=== PATIENT | male | born 1990 | race Caucasian/White ===

== ENCOUNTER 2018-08-08 16:44 | Emergency (ER) | payer MEDICAID, SELFPAY ==
[2018-08-08 16:47] VITALS: BP 136/88; PULSE 79; RESP 20; TEMP 36; O2SAT 95
--- NOTE | 2018-08-08 17:35 | W.ED.GENAD ---
Discharge Plan Disposition Patient Disposition: HOME Condition: Stable Discharge Details Chief Complaint: Orthopedic Clinical Impression: Right shoulder strain Primary Care Provider: Harris Christianson ED Provider: Leon Mendenhall Home Meds and New Rx's Prescriptions: New methocarbamol 500 mg tablet 500 - 1,000 mg PO Q6H PRN (Reason: Back pain or spasm) Qty: 14 RF: 0 Continued sertraline [Zoloft] 100 mg Tablet 100 mg PO DAILY RF: 0 omeprazole 20 mg Capsule,Delayed Release(Dr/Ec) 20 mg PO DAILY RF: 0 Discharge Instructions Additional Instructions: Use sling as needed for comfort 3-5 days time. Perform daily range of motion exercises as we discussed. Apply ice to reduce inflammation and pain. Remove the Lidoderm patch in 12 hours time. May continue ibuprofen 600-800 mg every 8 hours, with food. Follow-up with physical therapy this week. Return for any acute concern. Stand Alone Forms: Physical Therapy Referral Medical Decision Making 28-year-old male with a history of rotator cuff the and this presents with right shoulder pain after helping a friend move last weekend. He is tender overlying supraspinatus and I am concerned for rotator cuff inflammation. Do not feel that plain radiographs are indicated. We will place the patient in a sling for comfort, refer to physical therapy, will apply Lidoderm patch for tonight, the patient may continue to use ibuprofen and ice, and I will offer him a small number of methocarbamol for muscular discomfort. He is stable for discharge understands follow-up and return HPI General Mode of arrival: ambulatory. Date/Time Provider Initiated Documentation: 08/08/18 17:15. Limitations to Documentation: no limitations. Information obtained by: patient. History of Present Illness 28 year old M presents to the emergency department with the chief complaint of Right shoulder pain after helping a friend move, described as moderate, Quality is described as aching and dull, and is localized to the right and upper extremity. Patient reports no radiation. Patient started experiencing this day(s) and it has been constant. Rest improves symptom(s), Movement worsens symptoms . Patient notes no other symptoms.. Patient did receive the following treatments prior to arrival, none Related Data Home Medications Medication Instructions Recorded Confirmed methocarbamol 500 - 1,000 mg PO Q6H PRN #14 tab 08/08/18 omeprazole 20 mg PO DAILY 08/08/18 08/08/18 sertraline [Zoloft] 100 mg PO DAILY 08/08/18 08/08/18 Previous Rx's Medication Instructions Recorded methocarbamol 500 - 1,000 mg PO Q6H PRN #14 tab 08/08/18 Allergies Allergy/AdvReac Type Severity Reaction Status Date / Time No Known Allergies Allergy Unverified 08/08/18 17:06 General Stated Complaint: Orthopedic ARNOLDO: 3 Review of Systems Review of Systems No numbness or tingling. No traumatic injury. 6 systems reviewed and otherwise negative [facility] Family History Mother Personal history of malignant neoplasm Mental disorder Father Hyperlipidemia Grandfather Diabetes Hyperlipidemia Mental disorder Grandfather Personal history of malignant neoplasm Grandmother No problems noted. Grandmother No problems noted. Social History Smoking/Tobacco Use Status: Current-Occasional Drug use: Never Exam Narrative Exam Narrative: GEN: awake, alert, oriented 3. Pleasant, well groomed, interactive. HEAD: Normocephalic, atraumatic ENT: Mucous membranes moist, oropharynx unremarkable, External ear exam unremarkable EYES: PERRL, EOMI NECK: Full ROM, no SHIRA, no menigismus EXT: Right supraspinatus tenderness. Pain with resisted abduction right side. Good pain with internal with internal and external rotation. Motor is 5 out of 5. 2+ radial pulse Neuro: Grossly normal neurologic exam, conversant, interactive. Psych: Speech fluent, thoughts congruent, affect normal Course Vital Signs Temperature 36 C L 08/08/18 16:47 Pulse 79 08/08/18 16:47 Respiratory Rate 20 08/08/18 16:47 Blood Pressure 136/88 08/08/18 16:47 Pulse Oximetry 95 08/08/18 16:47 Temperature 36 C L 08/08/18 16:47 Pulse 79 08/08/18 16:47 Respiratory Rate 20 08/08/18 16:47 Respiratory Effort Non-Labored 08/08/18 16:47 Blood Pressure 136/88 08/08/18 16:47 Pulse Oximetry 95 08/08/18 16:47 Oxygen Delivery Method Room Air 08/08/18 16:47 Oxygen Flow Rate 0 08/08/18 16:47 Pain Level 7 08/08/18 16:47
--- NOTE | 2018-08-08 17:39 | ED.GENADUL_ITS ---
Discharge Plan Disposition Patient Disposition: HOME Condition: Stable Discharge Details Chief Complaint: Orthopedic Clinical Impression: Right shoulder strain Primary Care Provider: Harris Christianson ED Provider: Leon Mendenhall Home Meds and New Rx's Prescriptions: New methocarbamol 500 mg tablet 500 - 1,000 mg PO Q6H PRN (Reason: Back pain or spasm) Qty: 14 RF: 0 Continued sertraline [Zoloft] 100 mg Tablet 100 mg PO DAILY RF: 0 omeprazole 20 mg Capsule,Delayed Release(Dr/Ec) 20 mg PO DAILY RF: 0 Discharge Instructions Additional Instructions: Use sling as needed for comfort 3-5 days time. Perform daily range of motion exercises as we discussed. Apply ice to reduce inflammation and pain. Remove the Lidoderm patch in 12 hours time. May continue ibuprofen 600-800 mg every 8 hours, with food. Follow-up with physical therapy this week. Return for any acute concern. Stand Alone Forms: Physical Therapy Referral Medical Decision Making 28-year-old male with a history of rotator cuff the and this presents with right shoulder pain after helping a friend move last weekend. He is tender overlying supraspinatus and I am concerned for rotator cuff inflammation. Do not feel that plain radiographs are indicated. We will place the patient in a sling for comfort, refer to physical therapy, will apply Lidoderm patch for tonight, the patient may continue to use ibuprofen and ice, and I will offer him a small number of methocarbamol for muscular discomfort. He is stable for discharge understands follow-up and return HPI General Mode of arrival: ambulatory . Date/Time Provider Initiated Documentation: 08/08/18 17:15 . Limitations to Documentation: no limitations . Information obtained by: patient . History of Present Illness 28 year old M presents to the emergency department with the chief complaint of Right shoulder pain after helping a friend move, described as moderate, Quality is described as aching and dull, and is localized to the right and upper extremity. Patient reports no radiation. Patient started experiencing this day(s) and it has been constant. Rest improves symptom(s), Movement worsens symptoms . Patient notes no other symptoms.. Patient did receive the following treatments prior to arrival, none Related Data Home Medications Medication Instructions Recorded Confirmed methocarbamol 500 - 1,000 mg PO Q6H PRN #14 tab 08/08/18 omeprazole 20 mg PO DAILY 08/08/18 08/08/18 sertraline [Zoloft] 100 mg PO DAILY 08/08/18 08/08/18 Previous Rx's Medication Instructions Recorded methocarbamol 500 - 1,000 mg PO Q6H PRN #14 tab 08/08/18 Allergies Allergy/AdvReac Type Severity Reaction Status Date / Time No Known Allergies Allergy Unverified 08/08/18 17:06 General Stated Complaint: Orthopedic ARNOLDO: 3 Review of Systems Review of Systems No numbness or tingling. No traumatic injury. 6 systems reviewed and otherwise negative [facility] Family History Mother Personal history of malignant neoplasm Mental disorder Father Hyperlipidemia Grandfather Diabetes Hyperlipidemia Mental disorder Grandfather Personal history of malignant neoplasm Grandmother No problems noted. Grandmother No problems noted. Social History Smoking/Tobacco Use Status: Current-Occasional Drug use: Never Exam Narrative Exam Narrative: GEN: awake, alert, oriented 3. Pleasant, well groomed, interactive. HEAD: Normocephalic, atraumatic ENT: Mucous membranes moist, oropharynx unremarkable, External ear exam unremarkable EYES: PERRL, EOMI NECK: Full ROM, no SHIRA, no menigismus EXT: Right supraspinatus tenderness. Pain with resisted abduction right side. Good pain with internal with internal and external rotation. Motor is 5 out of 5. 2+ radial pulse Neuro: Grossly normal neurologic exam, conversant, interactive. Psych: Speech fluent, thoughts congruent, affect normal Course Vital Signs Temperature 36 C L 08/08/18 16:47 Pulse 79 08/08/18 16:47 Respiratory Rate 20 08/08/18 16:47 Blood Pressure 136/88 08/08/18 16:47 Pulse Oximetry 95 08/08/18 16:47 Temperature 36 C L 08/08/18 16:47 Pulse 79 08/08/18 16:47 Respiratory Rate 20 08/08/18 16:47 Respiratory Effort Non-Labored 08/08/18 16:47 Blood Pressure 136/88 08/08/18 16:47 Pulse Oximetry 95 08/08/18 16:47 Oxygen Delivery Method Room Air 08/08/18 16:47 Oxygen Flow Rate 0 08/08/18 16:47 Pain Level 7 08/08/18 16:47
[2018-08-08 17:52] VITALS: BP 136/88; PULSE 79; RESP 20; TEMP 36; O2SAT 95
[2018-08-08] MEDS: Lidocaine 5% Patch 1 PATCH TP (17:54)
== END 2018-08-08 17:47 | disposition home or self-care (01) ==
LOC: ER 17:54
PROVIDERS: Emergency Provider Emergency Medicine; PCP Family Medicine
DX: S46.911A Strain of unspecified muscle, fascia and tendon at shoulder and upper arm level, right arm, initial encounter (principal); X50.3XXA Overexertion from repetitive movements, initial encounter
CPT/HCPCS: 99283; 99282; L3650

== ENCOUNTER 2018-09-28 10:29 | Outpatient (REF) | payer MEDICAID, SELFPAY ==
[2018-09-28 13:45] LABS: Albumin 4.2 g/dL (3.4-5.0); Alkaline Phosphatase 54 U/L (46-116); Anion Gap 13.8 mmol/L (3-11); BUN 14 mg/dL (7-18); Bilirubin, Total 0.6 mg/dL (0.2-1.0); CO2 23.2 mmol/L (21.0-32.0); CREATININE 1.07 mg/dL (0.70-1.30); Calcium 8.5 mg/dL (8.5-10.1); Chloride 101 mmol/L (98-107); Cholesterol 287 mg/dL (50-200); Glucose 151 mg/dL (70-100); HDL Cholesterol 17 mg/dL (40-60); LDL CHOLESTEROL 81 mg/dL (<100); Potassium 4.2 mmol/L (3.5-5.1); Sodium 138 mmol/L (136-145); Total Protein 7.5 g/dL (6.4-8.2)
[2018-09-28 14:08] LABS: AST 95 U/L (15-37)
[2018-09-28 14:09] LABS: ALT 122 U/L (12-78); Triglyceride 1756 mg/dL (30-150)
[2018-09-28 15:46] LABS: Uric Acid 9.5 mg/dL (3.5-7.2)
== END 2018-09-28 10:49 ==
LOC: LBN 10:29
PROVIDERS: PCP Family Medicine; Visit Provider Family Medicine
DX: Z13.220 Encounter for screening for lipoid disorders (principal); M10.9 Gout, unspecified
CPT/HCPCS: 80053; 80061; 83721; 84550

== ENCOUNTER 2018-10-09 11:04 | Outpatient (REF) | payer MEDICAID, SELFPAY ==
[2018-10-09 13:08] LABS: Iron 52 ug/dL (50-175); Transferrin Sat 16 % (20-55)
[2018-10-09 13:23] LABS: Ferritin 259 ng/mL (8-388)
[2018-10-09 13:55] LABS: Total Iron Binding Capacity 318 ug/dL (250-450)
[2018-10-10 11:31] LABS: HBs Antibody, Qual Positive; HBs Antibody, Quant 23.8 mIU/mL; Hepatitis B Core Antibody Negative (NEGAT); Hepatitis B surface Ag Negative (NEGAT); Hepatitis C Ab w Rflx HCV PCR Negative (NEGAT)
[2018-10-10 14:46] LABS: ANA Interpretation Negative (NEGAT)
[2018-10-11 14:40] LABS: Smooth Muscle Ab Screen Negative (Negative)
== END 2018-10-09 11:24 ==
LOC: LBO 11:04
PROVIDERS: PCP Family Medicine; Visit Provider Family Medicine
DX: R74.8 Abnormal levels of other serum enzymes (principal); Z01.84 Encounter for antibody response examination; Z11.59 Encounter for screening for other viral diseases
CPT/HCPCS: 86704; 86706; 86803; 87340; 82728; 83540; 83550; 86038; 86255

== ENCOUNTER 2018-10-15 01:04 | Outpatient (CLI) | payer MEDICAID, SELFPAY ==
--- NOTE | 2018-10-15 07:02 | DI.US_ITS ---
SYMPTOM/DIAGNOSIS: ELEVATED LFT'S, SUSPECT NAFLD R74.8 ABDOMEN ULTRASOUND: There are no prior comparison exams The liver is enlarged and shows increased echogenicity and decreased through transmission, consistent with fatty infiltration. The posterior portions of the liver are not well visualized. No focal liver lesions are visible. There is no evidence of biliary dilatation. The gallbladder is unremarkable. The spleen appears enlarged with a length of 16 cm. The kidneys are unremarkable. There is no ascites. The aorta is normal in diameter. IMPRESSION: Enlarged fatty liver. Splenomegaly is also seen.
== END 2018-10-15 01:24 ==
PROVIDERS: PCP Family Medicine; Visit Provider Family Medicine
DX: R74.8 Abnormal levels of other serum enzymes (principal); R16.2 Hepatomegaly with splenomegaly, not elsewhere classified; K76.0 Fatty (change of) liver, not elsewhere classified
CPT/HCPCS: 76700

== ENCOUNTER 2019-03-04 01:29 | Outpatient (CLI) | payer MEDICAID, SELFPAY ==
--- NOTE | 2019-03-04 14:35 | DI.MRI_ITS ---
EXAM: MR BRAIN WO CLINICAL HISTORY: gait imbalance/abnormality,R26.9-unspecified abnormalities of gait/mobility. TECHNIQUE: Multiplanar multisequence MRI was performed. COMPARISON: No exams were available for comparison FINDINGS: Intracranial hemorrhage, mass or infarct is seen. The ventricles are normal in size. The vascular f low voids appear intact. There are no abnormal high signal lesions in the white matter. No of areas of restricted diffusion are seen. The orbits, sinuses and mastoid air cells are unremarkable. The pituitary appears normal in size. IMPRESSION: Negative MRI of the brain
== END 2019-03-04 01:49 ==
PROVIDERS: PCP Family Medicine; Visit Provider Psychiatry & Neurology Neurology
DX: R26.9 Unspecified abnormalities of gait and mobility (principal)
CPT/HCPCS: 70551

== ENCOUNTER 2019-09-28 23:21 | Emergency (ER) | payer SELFPAY ==
[2019-09-28 23:24] VITALS: BP 160/83; PULSE 89; RESP 16; TEMP 36.6; O2SAT 96
--- NOTE | 2019-09-28 23:41 | W.ED.GENAD ---
Discharge Plan Disposition Patient Disposition: HOME Condition: Stable Discharge Details Chief Complaint: Cellulitis Clinical Impression: Insect bite, venomous, Cellulitis and abscess of lower extremity Primary Care Provider: Willie Ely ED Provider: Ariadna Larose Home Meds and New Rx's Prescriptions: New mupirocin 2 % ointment 1 applic TP BID 7 Days Qty: 15 RF: 0 cephalexin 500 mg capsule 500 mg PO BID 5 Days Qty: 10 RF: 0 Continued omeprazole 20 mg capsule,delayed release(DR/EC) 20 mg PO DAILY Qty: 90 RF: 3 sertraline [Zoloft] 100 mg tablet 100 mg PO DAILY Qty: 90 RF: 3 gemfibrozil [Lopid] 600 mg tablet 600 mg PO BID Qty: 180 RF: 3 (DME) blood sugar diagnostic, disc strip See Dose Instructions .ROUTE .MEDSUPPLY Qty: 100 RF: 3 (DME) lancets misc See Dose Instructions .ROUTE .MEDSUPPLY Qty: 100 RF: 3 (DME) blood-glucose meter kit See Dose Instructions .ROUTE .MEDSUPPLY Qty: 1 RF: 0 Discharge Instructions Instructions: Cellulitis (ED), Insect Bite or Sting (ED) Additional Instructions: Follow up with primary care provider in 3-5 days. Return to ED sooner if any worsening or concerns. Increase oral fluids. Please take Tylenol or Ibuprofen with food every 4-6 hours as needed for pain and swelling. Take medications as directed. Keep covered clean and dry. Referrals: Willie Ely DO [Primary Care Provider] - Medical Decision Making 29-year-old male presents with right anterior insect bite. At this time it is mild to moderate. Patient states he woke up today with pruritic red area he did not see a bug that bit him. Redness as well. Which has spread somewhat, there is some yellowish drainage noted. Denies any fever chills, body aches or any other symptoms. He denies possible contact with poison oak or rebecca. At this time I will place bacitracin and a dressing. I will put him on 5 days of cephalexin for possible cellulitis. Although this is more likely a venomous reaction from an insect bite. Instructed to follow-up with PCP in 3 to 5 days or return if any worsening swelling, redness or any concerns. 2352: Applied bacitracin ointment dressing and pressure bandage to anterior villasenor. Discussed home care, verbalized understanding. HPI General Mode of arrival: ambulatory. Date/Time Provider Initiated Documentation: 09/28/19 23:31. Limitations to Documentation: no limitations. Information obtained by: patient. HPI Narrative: 29-year-old male presents with right anterior insect bite. At this time it is mild to moderate. Patient states he woke up today with pruritic red area he did not see a bug that bit him. Redness as well. Which has spread somewhat, there is some yellowish drainage noted. Denies any fever chills, body aches or any other symptoms. He denies possible contact with poison oak or rebecca. Related Data Home Medications Medication Instructions Recorded Confirmed omeprazole 20 mg capsule,delayed 20 mg PO DAILY #90 cap 09/28/18 09/28/19 release sertraline 100 mg tablet 100 mg PO DAILY #90 tab 09/28/18 09/28/19 blood sugar diagnostic, disc #100 each 10/09/18 02/26/19 blood-glucose meter #1 each 10/09/18 02/26/19 gemfibrozil 600 mg tablet 600 mg PO BID #180 tab 10/09/18 09/28/19 lancets #100 each 10/09/18 02/26/19 cephalexin 500 mg PO BID 5 Days #10 cap 09/28/19 mupirocin 1 applic TP BID 7 Days #15 gm 09/28/19 Previous Rx's Medication Instructions Recorded omeprazole 20 mg capsule,delayed 20 mg PO DAILY #90 cap 09/28/18 release sertraline 100 mg tablet 100 mg PO DAILY #90 tab 09/28/18 blood sugar diagnostic, disc #100 each 10/09/18 blood-glucose meter #1 each 10/09/18 gemfibrozil 600 mg tablet 600 mg PO BID #180 tab 10/09/18 lancets #100 each 10/09/18 cephalexin 500 mg PO BID 5 Days #10 cap 09/28/19 mupirocin 1 applic TP BID 7 Days #15 gm 09/28/19 Allergies Allergy/AdvReac Type Severity Reaction Status Date / Time No Known Allergies Allergy Verified 09/28/19 23:27 General Stated Complaint: Cellulitis ARNOLDO: 4 Review of Systems Narrative: Constitutional: Negative for weight loss, alert and oriented, well groomed, normal body habitus, appears comfortable. HEENT: Denies trauma, headaches, blurry vision, nasal discharge, sore throat, trouble swallowing. Chest: Denies chest pain, palpitations, irregular rhythm, hypertension. Respiratory: Denies Shortness of breath, cough, hemoptysis. GI: Denies abdominal pain, nausea, vomiting, diarrhea, constipation. : Denies dysuria, hematuria, flank pain, rectal bleeding. Musculoskeletal: He does have a possible insect bite to his right anterior villasenor. Neuro: Denies dizziness, blurry vision, weakness, syncope, headache or facial numbness. Hematologic: Denies easy bruising, intolerance to heat or cold, hair loss. [facility] Medical History Anxiety (Chronic) Back pain (Acute) Elevated liver enzymes (Acute) Gout (Chronic) Headache (Acute) High blood triglycerides (Chronic) Insomnia (Acute) Obesity (Acute 07/28/04) Reactive airway disease (Acute 08/02/03) Reflux esophagitis (Acute 08/03/11) Surgical History Hx of removal of cyst (Acute) Tailbone-Removed in HS Hx of wisdom tooth extraction (Acute) Family History Mother Personal history of malignant neoplasm Breast Mental disorder Depression/Anxiety Diabetes Father Hyperlipidemia Anxiety Arthritis Grandfather Diabetes Hyperlipidemia Mental disorder Depression Grandfather Personal history of malignant neoplasm Liver Social History Smoking/Tobacco Use Status: Current-Occasional Tobacco Type: cigarettes Smokeless tobacco user: other Alcohol Intake: current Alcohol Intake frequency: a few times a month Alcohol type: beer Drug use: Daily Substance use type: marijuana Household members: significant other Housing: apartment Number of Children: 0 Communication Needs: None Education Level: college current occupation: unemployed Current gender identity: male What is your relationship status?: living with partner Panel score (0-1 are the most socially isolated patients): 1 What type of physical activity do you participate in: regular exercise Frequency: 3-4 times per week Seatbelt use: always 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 Appears stated age. Normal body habitus. Head: Normocephalic, no trauma. Eyes: Pupils PERRLA, Red reflex noted, EOM's intact. Eyelids symmetrical without lesions, discharge, or swelling. ENT: Bilateral TM's WNL, External ear normal to inspection, no mastoid TTP, swelling, or erythema, Nasal turbinates WNL, no nasal discharge. Normal dentition, Posterior pharynx WNL, no exudate. Chest: RRR, Normal S1, S2, distal pulses intact. Resp: Lungs clear to auscultation bilaterally, no wheezes, rales, or rhonchi. Musculoskeletal: Normal gait, 5/5 strength to all four extremities. Skin: Does have a proximately 3 cm x 4 cm area of erythema to his right anterior villasenor and another raised maculopapular just distal to this. He does have some yellow thick drainage noted to central erythemic area, possible insect bite with cellulitis from itching. Capillary refill less than 2 sec. no surrounding erythema or swelling extremities nontender to palpation. Neurologic: Cranial nerves II-XII intact. Alert and oriented x 3. DTR's intact. Hematologic/Lymphatic: No ecchymosis, no lymphadenopathy. Course Vital Signs Vital signs: Vital Signs Temperature 36.6 C 09/28/19 23:24 Pulse 89 09/28/19 23:24 Respiratory Rate 16 09/28/19 23:24 Blood Pressure 160/83 H 09/28/19 23:24 Pulse Oximetry 96 09/28/19 23:24 Temperature 36.6 C 09/28/19 23:24 Temperature Source Skin 09/28/19 23:24 Pulse 89 09/28/19 23:24 Respiratory Rate 16 09/28/19 23:24 Respiratory Effort Non-Labored 09/28/19 23:28 Blood Pressure 160/83 H 09/28/19 23:24 Pulse Oximetry 96 09/28/19 23:24 Pain Level 36 09/28/19 23:24
[2019-09-28 23:57] VITALS: BP 118/76; PULSE 64; RESP 18; O2SAT 98
== END 2019-09-28 23:55 | disposition home or self-care (01) ==
LOC: ER 23:59
PROVIDERS: Emergency Provider Registered Nurse Emergency; PCP Family Medicine
DX: T63.481A Toxic effect of venom of other arthropod, accidental (unintentional), initial encounter (principal); L03.115 Cellulitis of right lower limb; L02.415 Cutaneous abscess of right lower limb
CPT/HCPCS: 99283

== ENCOUNTER 2019-11-22 12:12 | Outpatient (CLI) | payer SELFPAY ==
[2019-11-26 21:41] LABS: SARS-CoV-2 RNA Undetected (Undetected); SARS-CoV-2 Specimen Source Nasopharynx
== END 2019-11-22 12:32 ==
PROVIDERS: PCP Family Medicine; Visit Provider Family Medicine
DX: Z11.59 Encounter for screening for other viral diseases (principal)
CPT/HCPCS: U0003

== ENCOUNTER 2020-01-31 00:56 | Emergency (ER) | payer SELFPAY ==
[2020-01-31 00:59] VITALS: BP 140/71; PULSE 87; RESP 20; TEMP 36.9; O2SAT 95
--- NOTE | 2020-01-31 01:07 | ED.GENADUL_ITS ---
Discharge Plan Disposition Patient Disposition: HOME Condition: Stable Discharge Details Clinical Impression: Jaw pain Primary Care Provider: Willie Ely ED Provider: Etienne Stewart Home Meds and New Rx's Prescriptions: New amoxicillin-pot clavulanate [Augmentin] 875-125 mg tablet 1 tab PO BID Qty: 14 RF: 0 Continued omeprazole 20 mg capsule,delayed release(DR/EC) 20 mg PO DAILY Qty: 90 RF: 3 sertraline [Zoloft] 100 mg tablet 100 mg PO DAILY Qty: 90 RF: 3 Discharge Instructions Additional Instructions: You are being treated for a possible early dental infection if you are not improving within 5 days on the antibiotics follow up with your primary care provider return to the emergency department for fevers, severe worsening pain, difficulty swallowing liquids or if you feel more ill you can take 1000mg tylenol and 600mg ibuprofen very 6 hours for pain as needed Medical Decision Making 29 yo male comes in with 3-4 days of right sided neck pain and points to the right posterior mandible when saying neck. Denies fevers, dyspnea or difficulty swallowing. He has no submandibular swelling, full rom of the neck without pain and no rashes or appreciable swelling or assymetry on exam. Normal oropharynx, midline uvula, no pain over hyoid and no restricted neck movements. Has some pain with percurssion to the posterior right lower molars, suspect this could be a dental infection. 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 will start him on antibiotics but advised needs to f/u with pcp or dentist if not improving within a week and return precautions given Differential Diagnosis Differential Diagnosis: dental infection, pharyngitis, tmj disorder [facility] General Mode of arrival: ambulatory . Date/Time Provider Initiated Documentation: 01/31/20 00:58 . Limitations to Documentation: no limitations . Information obtained by: patient . History of Present Illness 29 year old M presents to the emergency department with the chief complaint of right jaw pain, described as moderate, Patient started experiencing this day(s) (4) and it has been constant. No relieving factors improve symptom(s), No exacerbating factors reported . Related Data Home Medications Medication Instructions Recorded Confirmed omeprazole 20 mg capsule,delayed 20 mg PO DAILY #90 cap 09/28/18 01/31/20 release sertraline 100 mg tablet 100 mg PO DAILY #90 tab 09/28/18 01/31/20 amoxicillin-pot clavulanate 1 tab PO BID #14 tab 01/31/20 [Augmentin] Previous Rx's Medication Instructions Recorded omeprazole 20 mg capsule,delayed 20 mg PO DAILY #90 cap 09/28/18 release sertraline 100 mg tablet 100 mg PO DAILY #90 tab 09/28/18 amoxicillin-pot clavulanate 1 tab PO BID #14 tab 01/31/20 [Augmentin] Allergies Allergy/AdvReac Type Severity Reaction Status Date / Time No Known Allergies Allergy Verified 01/31/20 01:06 General Stated Complaint: DentalOral ARNOLDO: 4 Review of Systems All systems reviewed & are unremarkable except as noted in HPI and below Constitutional Constitutional: Denies chills, Denies fever(s) and Denies weakness ENT Ears, Nose, Mouth, and Throat: Denies change in voice Cardiovascular Cardiovascular: Denies chest pain and Denies dyspnea Respiratory Respiratory: Denies cough and Denies dyspnea Gastrointestinal Gastrointestinal: Denies abdominal pain, Denies nausea and Denies vomiting Musculoskeletal Musculoskeletal: Denies joint swelling Neurologic Neurologic: Denies weakness Psychiatric Psychiatric: Denies depression [facility] Medical History (Updated 01/31/20 @ 01:10 by Etienne Stewart MD) Anxiety Back pain Elevated liver enzymes Gout Headache High blood triglycerides Insomnia Obesity (07/28/04) Reactive airway disease (08/02/03) Reflux esophagitis (08/03/11) Surgical History Hx of removal of cyst Tailbone-Removed in HS Hx of wisdom tooth extraction Family History Mother Personal history of malignant neoplasm Breast Mental disorder Depression/Anxiety Diabetes Father Hyperlipidemia Anxiety Arthritis Grandfather Diabetes Hyperlipidemia Mental disorder Depression Grandfather Personal history of malignant neoplasm Liver Social History Smoking/Tobacco Use Status: Current-Occasional Tobacco Type: cigarettes Smokeless tobacco user: other Alcohol Intake: current Alcohol Intake frequency: a few times a month Alcohol type: beer Drug use: Daily Substance use type: marijuana Household members: significant other Housing: apartment Number of Children: 0 Communication Needs: None Education Level: college current occupation: unemployed Current gender identity: male What is your relationship status?: living with partner Panel score (0-1 are the most socially isolated patients): 1 What type of physical activity do you participate in: regular exercise Frequency: 3-4 times per week Seatbelt use: always 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 Working smoke detector in home: Yes Fire extinguisher in home: Yes Carbon monox detector in home: Yes Do you feel safe at home: Yes Do you feel safe in your relationship?: Yes Exam Const General: no acute distress Orientation: alert HENIL Head: normal to inspection Ears: external ears normal General nose exam: external nose normal Mouth: moist mucous membranes Eyes General: appearance normal, both eyes and all related structures Neck Neck: normal visual inspection Resp Effort & Inspection: normal respiratory effort and able to speak in complete sentences Cardio Rate: regular rate Skin General skin exam: no rashes or lesions noted Neuro General: patient alert and patient oriented x3 Extrem General: normal to inspection Psych Mental Status: mental status grossly normal Course Vital Signs Vital signs: Vital Signs Temperature 36.9 C 01/31/20 00:59 Pulse 87 01/31/20 00:59 Respiratory Rate 20 01/31/20 00:59 Blood Pressure 140/71 01/31/20 00:59 Pulse Oximetry 95 01/31/20 00:59 Temperature 36.9 C 01/31/20 00:59 Temperature Source Tympanic 01/31/20 00:59 Pulse 87 01/31/20 00:59 Respiratory Rate 20 01/31/20 00:59 Respiratory Effort 01/31/20 01:04 Blood Pressure 140/71 01/31/20 00:59 Pulse Oximetry 95 01/31/20 00:59 Oxygen Delivery Method Room Air 01/31/20 00:59 Oxygen Flow Rate 0 01/31/20 00:59 Pain Level 8 01/31/20 01:04
[2020-01-31] MEDS: Amoxicillin 875/Clav. 125 TAB PO (01:16)
== END 2020-01-31 01:15 | disposition home or self-care (01) ==
PROVIDERS: Emergency Provider Emergency Medicine; PCP Family Medicine
DX: R68.84 Jaw pain (principal)
CPT/HCPCS: 99283

== ENCOUNTER 2023-08-07 08:33 | Emergency (ER) | payer SELFPAY ==
[2023-08-07 08:39] VITALS: BP 163/103; PULSE 92; RESP 16; O2SAT 98
--- NOTE | 2023-08-07 08:58 | ED.GENADUL_ITS ---
Discharge Plan Disposition Patient Disposition: Home Condition: Stable Discharge Details Clinical Impression: Abscess of perineum Primary Care Provider: Willie Ely ED Provider: Ariadna Larose Home Meds and New Rx's Prescriptions: New clindamycin HCl 150 mg capsule 450 mg PO TID 10 Days Qty: 90 0RF oxycodone-acetaminophen [Endocet] 5-325 mg tablet 1 tab PO Q8H PRN (Reason: pain (scale score 7-10)) Qty: 7 0RF Rx Instructions: Take one tablet by mouth 3 times daily as needed for severe pain No Action omeprazole 20 mg capsule,delayed release(DR/EC) 20 mg PO DAILY Qty: 90 3RF Zyrtec 10 mg capsule 10 mg PO DAILY PRN ibuprofen 800 mg tablet 800 mg PO Q8H PRN (Reason: pain) Qty: 30 0RF colchicine 0.6 mg capsule 0.6 mg PO DAILY PRN (Reason: gout) Qty: 30 0RF Rx Instructions: 1 every hour until no pain or develop side effects, max 6/24 hrs. sertraline 100 mg tablet See Rx Instructions .ROUTE .COMPLEX Qty: 135 3RF Dose Instruction: TAKE 1 AND 1/2 TABLETS BY MOUTH DAILY Rx Instructions: TAKE 1 AND 1/2 TABLETS BY MOUTH DAILY Discharge Instructions Instructions: Abscess (ED), Sitz Bath (DC) Additional Instructions: At this time you have a abscess that is draining to the perineal area. Please use sitz bath's up to 3 times daily as needed and warm compresses. Take the antibiotics as directed with yogurt or probiotic. Take the pain medication as needed with food. No driving or operating heavy machinery while on this medication. Please take Ibuprofen with food every 4-6 hours as needed for pain and swelling. Follow up with primary care provider in 3-5 days. Return to ED sooner if any worsening pain, fever, chills or concerns. Stand Alone Forms: Work Release Referrals: Willie Ely DO [Primary Care Provider] - 3 days HPI General Mode of arrival: ambulatory . Date/Time Provider Initiated Documentation: 08/07/23 08:43 . Limitations to Documentation: no limitations . Information obtained by: patient, RN notes reviewed and old records reviewed . HPI Narrative: 33 year old male presents to the ED with chief complaint of kinsey-rectal abscess that began to drain this am while at work. He reports increasing pain since Monday. Denies any fever or chills, however the surrounding area is slightly erythemic. Does have a history of a pilonidal cyst which was removed when he was a child, other history includes gout back pain. GERD. Related Data Home Medications Medication Instructions Recorded Confirmed omeprazole 20 mg capsule,delayed 20 mg PO DAILY #90 caps 07/21/20 08/07/23 release cetirizine 10 mg capsule (Zyrtec) 10 mg PO DAILY PRN 08/14/20 08/07/23 ibuprofen 800 mg tablet 800 mg PO Q8H PRN pain #30 tabs 08/14/20 08/07/23 colchicine 0.6 mg capsule 0.6 mg PO DAILY PRN gout #30 09/07/21 08/07/23 tab-caps sertraline 100 mg tablet See Rx Instructions .Route 04/18/23 08/07/23 .COMPLEX #135 tabs clindamycin HCl 150 mg capsule 450 mg (3 x 150 mg) PO TID 10 days 08/07/23 #90 caps oxycodone-acetaminophen 5 mg-325 1 tab PO Q8H PRN pain (scale score 08/07/23 mg tablet (Endocet) 7-10) #7 tabs Previous Rx's Medication Instructions Recorded omeprazole 20 mg capsule,delayed 20 mg PO DAILY #90 caps 07/21/20 release ibuprofen 800 mg tablet 800 mg PO Q8H PRN pain #30 tabs 08/14/20 colchicine 0.6 mg capsule 0.6 mg PO DAILY PRN gout #30 09/07/21 tab-caps sertraline 100 mg tablet See Rx Instructions .Route 04/18/23 .COMPLEX #135 tabs clindamycin HCl 150 mg capsule 450 mg (3 x 150 mg) PO TID 10 days 08/07/23 #90 caps oxycodone-acetaminophen 5 mg-325 1 tab PO Q8H PRN pain (scale score 08/07/23 mg tablet (Endocet) 7-10) #7 tabs Allergies Allergy/AdvReac Type Severity Reaction Status Date / Time seasonal allergies Allergy Intermediate Other (See Uncoded 08/07/23 08:43 Comment) General Stated Complaint: RashLesion ARNOLDO: 4 Review of Systems Integumentary/Breasts Skin/Breast: Reports erythema, Reports skin pain, Reports skin swelling and Reports wounds Exam Narrative Exam Narrative: Constitutional: Alert and oriented x3. Appears stated age. Normal body habitus. Head: Normocephalic, no trauma. Eyes: Pupils PERRL, Red reflex noted, EOM's intact. Eyelids symmetrical without lesions, discharge, or swelling. Chest: RRR, Normal S1, S2, distal pulses intact. Resp: Lungs clear to auscultation bilaterally, no wheezes, rales, or rhonchi. Abdomen: Soft, non-distended, Normoactive bowel sounds all 4 quads. : See below Male General Exam: Yes normal external exam, Yes erythema, Yes lesions (Draining perineal abscess, with Dark brown drainage. ), Yes perineal induration (Surrounding erythema) and Yes tenderness Testes: normal Course Vital Signs Vital signs: Vital Signs Pulse 92 H 08/07/23 08:39 Respiratory Rate 16 08/07/23 08:39 Blood Pressure 163/103 H 08/07/23 08:39 Pulse Oximetry 98 08/07/23 08:39 Pulse 92 H 08/07/23 08:39 Respiratory Rate 16 08/07/23 08:39 Respiratory Effort Normal, Non-Labored 08/07/23 08:44 Blood Pressure 163/103 H 08/07/23 08:39 Blood Pressure Position Standing 08/07/23 08:39 Pulse Oximetry 98 08/07/23 08:39 Oxygen Delivery Method Room Air 08/07/23 08:39 Oxygen Flow Rate 0 08/07/23 08:39 Medical Decision Making 33 year old male presents to the ED with chief complaint of kinsey-rectal abscess that began to drain this am while at work. He reports increasing pain since Monday. Denies any fever or chills, however the surrounding area is slightly erythemic. Does have a history of a pilonidal cyst which was removed when he was a child, other history includes gout back pain. GERD. On exam, actively draining foul smelling dark brown drainage. Labs orderd, and CT pelvis with contrast. CBC shows no leukocytosis, neutrophils 8.31, lactate elevated at 1.5, CMP largely within normal limits glucose was 143. Liter of normal saline ordered, Flagyl and Rocephin. CT shows a 3 x 2 x 1 cm abscess noted to the perineal area. An additional amount expressed from abscess area, patient given clindamycin rescription and instructions for home care and sitz baths. Patient remained hemodynamically stable throughout stay, blood pressure was improved prior to discharge. This text was generated using [employer] system, please disregard any oddities of phrase or misspellings. Imaging Data Radiologic Study: Imaging: CT Scan Radiologist's impression: COMPARISON: No exams were available for comparison FINDINGS: PELVIS: OSSEOUS:No pelvic or hip fractures evident. No significant osseous lesions.There is grade 1 anterolisthesis L5 upon S1 due to bilateral pars defects at L5. Mild disc space narrowing at this level also noted. ANTERIOR ABDOMINAL WALL/GI:No evidence of bowel obstruction. No evidence of appendicitis.No evidence of sigmoid diverticulitis. LYMPH NODES: There is no intrapelvic nor inguinal adenopathy. REPRODUCTIVE: Prostate size normal. Seminal vesicles unremarkable. URINARY BLADDER: No calculi nor obvious masses evident OTHER: Ischial rectal fat unremarkable. There is a E perianal midline abscess measuring approximately 2 cm AP by 1.2 cm wide by 3 cm craniocaudal. IMPRESSION: 1. There is a 3 x 2 x 1.2 cm midline abscess just below the anal level. Higher up in the kinsey rectal and ischiorectal fat appears unremarkable. 2. Incidentally noted anterolisthesis L5 upon S1 due to bilateral L5 pars defects. Quality:SDOH Health Related Social Needs: No Data to Display PFSH All Active Problems (Updated 08/07/23 @ 10:20 by Ariadna Larose NP) Abscess of perineum (Acute) Perirectal discomfort (Acute) Insomnia (Acute) Gait abnormality (Acute) Migraine headache without aura (Acute) Obesity (Acute 07/28/04) Reactive airway disease (Acute 08/02/03) Reflux esophagitis (Acute 08/03/11) Elevated liver enzymes (Acute) High blood triglycerides (Chronic) Allergic rhinitis (Acute 08/13/96) Eczema (Acute 08/26/97) Heart murmur (Acute 90) Pilonidal cyst (Acute) Umbilical hernia (Acute 90) Anxiety (Chronic) Medical History (Updated 08/07/23 @ 10:20 by Ariadna Larose NP) Gout Back pain Headache Surgical History Hx of removal of cyst Tailbone-Removed in HS Hx of wisdom tooth extraction Family History Mother Personal history of malignant neoplasm Breast Mental disorder Depression/Anxiety Diabetes Father Hyperlipidemia Anxiety Arthritis Grandfather Diabetes Hyperlipidemia Mental disorder Depression Grandfather Personal history of malignant neoplasm Liver Social History Smoking/Tobacco Use Status: Current-Occasional Tobacco Type: cigarettes Smokeless tobacco user: other Smoking risk assessment performed?: Yes Alcohol Intake: current Alcohol Intake frequency: a few times a month Alcohol type: beer Drug use: Occasionally Substance use type: marijuana Household members: significant other Housing: apartment Number of Children: 0 Communication Needs: None Education Level: college current occupation: unemployed Current gender identity: male What is your relationship status?: living with partner Panel score (0-1 are the most socially isolated patients): 1 What type of physical activity do you participate in: regular exercise Frequency: 3-4 times per week Seatbelt use: always 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 Working smoke detector in home: Yes Fire extinguisher in home: Yes Carbon monox detector in home: Yes Do you feel safe at home: Yes Do you feel safe in your relationship?: Yes PAWSS Have you Been Recently Intoxicated or Drunk Within the Last 30 days?: No Have you Ever Experienced Previous Episodes of Alcohol Withdrawal?: No Have you ever Experienced Withdrawal Seizures?: No Have you ever Experienced Delirium Tremens(DT)s?: No Have you ever undergone Alcohol Rehabilitation Treatment (i.e, inpt ot outpatient treatment programs)?: No Have you ever Experienced Blackouts?: No Have you ever Combined Alcohol with other Downers within the last 90 days?: No Have you ever Combined Alcohol with any other Substance of Abuse during the last 90 days?: No Positive Blood Alcohol level on Presentation? [PCS.BAL]: No Evidence of Increased Autonomic Activity (i.e. HR>120, tremor, sweating, agit ation, nausea)?: No Result: 0
[2023-08-07] MEDS: Lidocaine/Epinephri/Tetracaine Topical Gel 3 ML TP (09:13)
[2023-08-07 09:14] LABS: Lactate 1.5 mmol/L (0.6-1.4)
[2023-08-07 09:16] LABS: Abs Immature Grans 0.04 10^3/uL (0.0-0.06); Absolute Basophil Count 0.06 10^3/uL (0.0-0.2); Absolute Eosinophil Count 0.14 10^3/uL (0.0-0.7); Absolute Lymphocyte Count 1.23 10^3/uL (1.2-3.4); Absolute Monocyte Count 0.39 10^3/uL (0.1-0.8); Absolute Neutrophil Count 8.31 10^3/uL (1.2-6.7); Basophils % 0.6; Eosinophils % 1.4; HCT 43.5 % (40.0-50.0); HGB 14.5 g/dL (13.5-17.5); Immature Grans % 0.4; Lymphocytes % 12.1; MCH 29.1 pg (27.0-33.0); MCHC 33.3 % (32.0-36.0); MCV 87 fL (80-95); MPV 11.2 fL (8.0-11.0); Monocytes % 3.8; Neutrophils % 81.7; Platelet Count 151 10^3/uL (130-400); RBC 4.99 10^6/uL (4.36-5.78); RDW 13.2 % (11.8-14.1); RDW-SD 41.7 fL; WBC 10.17 10^3/uL (4.4-10.8)
[2023-08-07] MEDS: Omnipaque 350 MG/ML 100 ML BTL IJ (09:30)
[2023-08-07 09:31] LABS: ALT 46 U/L (16-63); AST 15 U/L (15-37); Albumin 4.2 g/dL (3.4-5.0); Alkaline Phosphatase 50 U/L (46-116); Anion Gap 10.9 mmol/L (3-11); BUN 13 mg/dL (7-18); Bilirubin, Total 0.6 mg/dL (0.2-1.0); CO2 27.1 mmol/L (21.0-32.0); CREATININE 1.2 mg/dL (0.70-1.30); Calcium 9.1 mg/dL (8.5-10.1); Chloride 106 mmol/L (98-107); Estimated GFR 81.89 (mL/min/1.73m2); Glucose 143 mg/dL (74-106); Potassium 4.1 mmol/L (3.5-5.1); Sodium 144 mmol/L (136-145); Total Protein 7.8 g/dL (6.4-8.2)
[2023-08-07] MEDS: Normal Saline - Diluent 50 ML VIAL IJ (09:31)
--- NOTE | 2023-08-07 09:35 | DI.CT_ITS ---
Exam(s) CT PELVIC W EXAM: CT PELVIC W CLINICAL HISTORY: Rectal abscess. TECHNIQUE: Imaging Protocol: Axial computed tomography images with coronal and sagittal reformatted images were created and reviewed CONTRAST MATERIAL: Intravenous: Omnipaque 100cc Oral: None COMPARISON: No exams were available for comparison FINDINGS: PELVIS: OSSEOUS:No pelvic or hip fractures evident. No significant osseous lesions.There is grade 1 anteroli sthesis L5 upon S1 due to bilateral pars defects at L5. Mild disc space narrowing at this level also noted. ANTERIOR ABDOMINAL WALL/GI:No evidence of bowel obstruction. No evidence of appendicitis.No evidence of sigmoid diverticulitis. LYMPH NODES: There is no intrapelvic nor inguinal adenopathy. REPRODUCTIVE: Prostate size normal. Seminal vesicles unremarkable. URINARY BLADDER: No calculi nor obvious masses evident OTHER: Ischial rectal fat unremarkable. There is a E perianal midline abscess measuring approximatel y 2 cm AP by 1.2 cm wide by 3 cm craniocaudal. IMPRESSION: 1. There is a 3 x 2 x 1.2 cm midline abscess just below the anal level. Higher up in the kinsey rectal and ischiorectal fat appears unremarkable. 2. Incidentally noted anterolisthesis L5 upon S1 due to bilateral L5 pars defects. RADIATION DOSE DELIVERED: Total DLP DATA REPOSITORY: All CT scans at this facility are submitted to the National Radiology Data Registry (NRDR) Dose Index Registry (DIR) with the [employer] (A[employer]). RADIATION OPTIMIZATION: All CT scans at this facility use at least one of these dose optimization te chniques: automated exposure control; mA and/or kV adjustment per patient size (includes targeted exa ms where dose is matched to clinical indication); or iterative reconstruction.
[2023-08-07] MEDS: cefTRIAXone 1 GM/50 ML BAG IVPB (09:37)
[2023-08-07] MEDS: Normal Saline 1,000 ML 1000 ML IV (09:37)
[2023-08-07] MEDS: metroNIDAZOLE 500 MG/100 ML BAG 100 MG IVPB (10:19)
[2023-08-07 11:36] VITALS: BP 122/72; PULSE 63; RESP 16; O2SAT 100
== END 2023-08-07 11:38 | disposition home or self-care (01) ==
LOC: ER 10:40
PROVIDERS: Emergency Provider Registered Nurse Emergency; PCP Family Medicine
DX: L02.215 Cutaneous abscess of perineum (principal); F17.210 Nicotine dependence, cigarettes, uncomplicated
CPT/HCPCS: 36415; 80053; 96365; 96368; 99285; 72193; 83605; 85025; 99284; J0696; J1836; J3490

== ENCOUNTER 2025-03-11 00:49 | Outpatient (CLI) | payer OTHER, SELFPAY ==
[2025-03-11 15:57] LABS: ALT 78 U/L (10-49); AST 43 U/L (<34); Albumin 4.8 g/dL (3.4-5.0); Alkaline Phosphatase 41 U/L (46-116); Anion Gap 10.9 mmol/L (3-11); BUN 17 mg/dL (9-23); Bilirubin, Total 0.50 mg/dL (0.2-1.2); CO2 18.1 mmol/L (20.0-31.0); Calcium 8.9 mg/dL (8.3-10.6); Chloride 109 mmol/L (98-107); Cholesterol 357 mg/dL (<200); Glucose 101 mg/dL (74-106); HDL Cholesterol 28 mg/dL (>40); Potassium 3.8 mmol/L (3.5-5.1); Sodium 138 mmol/L (136-145); Total Protein 7.6 g/dL (5.7-8.2)
== END 2025-03-11 00:50 | disposition home or self-care (01) ==
DX: E78.1 Pure hyperglyceridemia (principal); R74.8 Abnormal levels of other serum enzymes
CPT/HCPCS: 36415; 80053; 80061; 83695; 83721